=== PATIENT | female | born 1990 | race Caucasian/White ===

== ENCOUNTER 2021-12-01 22:11 | Emergency (ER) | payer BC, OTHER ==
[2021-12-01] MEDS ORDERED: Ondansetron PF 4 MG/2 ML Vial ONE (22:56)
[2021-12-01 23:05] LABS: Bilirubin Neg (Negative); Blood, Urine Negative (Negative); Clarity Clear (Clear); Glucose, Urine (Dipstick) Normal (Negative); Ketone, Urine 150 mg/dL (Negative); Leukocyte 100 (Negative); Nitrite Negative (Negative); Protein, Urine (Dipstick) 30 mg/dl (Neg-Trace); Specific Gravity, Urine 1.025 (1.002-1.036)
[2021-12-01 23:11] LABS: #Monocytes 0.4 10x3/uL (0.0-1.1); #Neutrophils 16.4 10x3/uL (1.5-8.4); %Basophils 0.1 % (0.0-2.0); %Eosinophils 0.2 % (0.0-6.0); %Lymphocytes 3.7 % (18.0-47.0); %Neutrophils 93.6 % (40.0-75.0); ALT (SGPT) 35 U/L (8-55); AST (SGOT) 25 U/L (5-34); Albumin 3.8 g/dL (3.5-5.0); Alkaline Phosphatase 69 U/L (40-110); Anion Gap 17 mmol/L (10-20); BUN (Urea Nitrogen) 12 mg/dL (7.0-18.7); Bilirubin, Total 0.5 mg/dL (0.2-1.2); Calc. Creatinine Clearance 0 mL/min (70-130); Calcium 9.1 mg/dL (7.8-10.44); Carbon Dioxide 19 mmol/L (22-29); Chloride 104 mmol/L (98-107); Globulin 3.8 g/dL (2.4-3.5); Glucose 117 mg/dL (70-105); Hemoglobin 13.7 g/dL (12.0-15.5); Magnesium 1.7 mg/dL (1.6-2.6); Mean Corpuscular HGB CONC 34.5 g/dL (32.0-36.0); Mean Corpuscular Hemoglobin 31.6 pg (27.0-33.0); Mean Corpuscular Volume 91.7 fl (81.6-98.3); Mean Platelet Volume 9.1 fl (7.4-10.4); Platelet Count 393 10x3/uL (150-450); Potassium 3.9 mmol/L (3.5-5.1); Protein, Total 7.6 g/dL (6.0-8.3); RBC Distribution Width 13.3 % (11.5-14.5); Red Blood Cell (RBC) Count 4.33 10x6/uL (3.90-5.03); Sodium 136 mmol/L (136-145); White Blood Cell (WBC) Count 17.5 10x3/uL (3.5-10.5)
[2021-12-01 23:15] LABS: Bacteria/HPF 2+ HPF (None Seen); RBC/HPF 0-3 HPF (0-3); Squamous Epithelial 21-50 HPF (0-3)
== END 2021-12-02 01:01 | disposition home or self-care (01) ==
LOC: CSHERS 22:11
DX: O23.41 Unspecified infection of urinary tract in pregnancy, first trimester (principal); O21.9 Vomiting of pregnancy, unspecified; Z3A.24 24 weeks gestation of pregnancy
CPT/HCPCS: 80053; 81003; 81015; 83735; 85025; 96374; J2405

== ENCOUNTER 2022-03-04 17:02 | Inpatient (IN) | payer BC ==
[~2022-03-04 17:02] MED LIST: Bupivacaine 0.25% HCL 30 ML VIAL ONE
[2022-03-04] MEDS ORDERED: Ondansetron PF 4 MG/2 ML Vial IVP PRN (17:20)
[2022-03-04] MEDS ORDERED: Misoprostol 200 MCG TAB PR PRN (17:20)
[2022-03-04] MEDS ORDERED: Diphenoxylate HCl/Atropine Tablet PO PRN ×2 (17:20)
[2022-03-04] MEDS ORDERED: hydrALAZINE 20 MG/ML VIAL SLOW IVP PRN (17:20)
[2022-03-04] MEDS ORDERED: Ibuprofen 800 MG TAB PO PRN (17:20)
[2022-03-04] MEDS ORDERED: HYDROcodone/Acetaminophen 5/325 mg Tablet PO PRN ×2 (17:20)
[2022-03-04] MEDS ORDERED: Promethazine HCl 25 MG/ML VIAL IM PRN (17:20)
[2022-03-04] MEDS ORDERED: Zolpidem Tartrate 5 MG TAB PO PRN (17:20)
[2022-03-04] MEDS ORDERED: Butorphanol Tartrate 1 MG/ML VIAL SLOW IVP PRN (17:20)
[2022-03-04] MEDS ORDERED: Docusate 100 MG CAP PO PRN (17:20)
[2022-03-04] MEDS ORDERED: Acetaminophen 500 MG TAB PO PRN (17:20)
[2022-03-04] MEDS ORDERED: Lidocaine 1% (PF) 30 ML VIAL SC PRN (17:20)
[2022-03-04] MEDS ORDERED: Calcium Gluc 4.6 MEQ/10 ML (100 MG/ML) SLOW IVP PRN (17:25)
[2022-03-04] MEDS ORDERED: Lorazepam 2 MG/ML VIAL SLOW IVP PRN (17:25)
[2022-03-04] MEDS ORDERED: Labetalol HCl 100 MG/20 ML VIAL SLOW IVP PRN (17:25)
[2022-03-04] MEDS ORDERED: Misoprostol 100 MCG TAB VAG SCH (17:30)
[2022-03-04] MEDS ORDERED: NS w/ Oxytocin 30 units 500 ML IV SCH ×2 (17:30)
[2022-03-04] MEDS ORDERED: Penicillin G Potassium 5 MILL.UNITS in Sodium Chloride 0.9% 100 ML IVPB SCH (17:30)
[2022-03-04] MEDS ORDERED: Magnesium Sulfate 20 gm/500 ml 20 GM/500 ML BAG IVPB SCH (17:30)
[2022-03-04 17:56] LABS: #Basophils 0.1 10x3/uL (0.0-0.2); #Eosinphils 0.3 10x3/uL (0.0-0.5); #Neutrophils 5.9 10x3/uL (1.5-8.4); %Basophils 0.5 % (0.0-2.0); %Eosinophils 3.1 % (0.0-6.0); %Lymphocytes 22.2 % (18.0-47.0); %Monocytes 10.6 % (0.0-10.0); %Neutrophils 63.3 % (40.0-75.0); Hemoglobin 11.8 g/dL (12.0-15.5); Mean Corpuscular Hemoglobin 30.6 pg (27.0-33.0); Mean Platelet Volume 9.7 fl (7.4-10.4); Platelet Count 327 10x3/uL (150-450); RBC Distribution Width 13.5 % (11.5-14.5); Red Blood Cell (RBC) Count 3.85 10x6/uL (3.90-5.03); White Blood Cell (WBC) Count 9.3 10x3/uL (3.5-10.5)
[2022-03-04 18:07] LABS: Uric Acid 4.2 mg/dL (2.6-6.0)
[2022-03-04 18:28] LABS: HIV (1/2) Antibody/Antigen Non-Reactive (NonReactive); HIV 1/2 INDEX 0.14 S/CO (<1.00); Hep B Surf Ag Non-Reactive S/CO (NonReactive)
[2022-03-04 18:29] LABS: Syphilis Antibody Nonreactive (Nonreactive); Syphilis Antibody Index 0.05 S/CO (<1.00 Non-Reactive)
[2022-03-04 18:31] LABS: HBSAg Index 0.22 S/CO (0-0.99)
[2022-03-04 19:54] VITALS: BMI 45.1
[2022-03-04] MEDS: Lactated Ringer's 1,000 ML IV SCH (20:15)
[2022-03-04] MEDS: Labetalol HCl 200 MG TAB PO SCH (20:55)
[2022-03-04 22:24] LABS: SARS-CoV-2 NAA Rapid Test Not Detected (NotDetected)
[2022-03-05] MEDS: Penicillin G 2.5 MILL.units 2.5 MILL.UNITS in Premix Bag 1 BAG IVPB SCH ×5 (01:02→16:55)
[2022-03-05] MEDS ORDERED: Fentanyl 2 mcg/Bup 0.1% Cadd 100 ML ONE (03:32)
[2022-03-05] MEDS ORDERED: ePHEDrine Sulfate 50 MG/10 ML VIAL SLOW IVP PRN (04:17)
[2022-03-05] MEDS ORDERED: Naloxone HCl 0.4 mg/ml Vial IVP PRN ×2 (04:17)
[2022-03-05] MEDS ORDERED: Moisturizing Cream (Eucerin) 113 GM JAR TOP PRN (04:17)
[2022-03-05] MEDS ORDERED: Ondansetron PF 4 MG/2 ML Vial IVP PRN ×2 (04:17→13:17)
[2022-03-05] MEDS ORDERED: Promethazine HCl 25 MG/ML VIAL IM PRN (04:17)
[2022-03-05] MEDS ORDERED: Acetaminophen 325 MG TAB PO PRN (04:17)
[2022-03-05] MEDS ORDERED: Lactated Ringer's 500 ML IV PRN (04:17)
[2022-03-05] MEDS ORDERED: diphenhydrAMINE 50 MG/ML VIAL IVP PRN (04:17)
[2022-03-05] MEDS ORDERED: Fentanyl 2 mcg/Bupivacaine 0.1% Cassette 100 ML EPIDURAL SCH (04:30)
[2022-03-05] MEDS ORDERED: Communication Order-Pharmacy FS SCH (04:30)
[2022-03-05] MEDS: Lactated Ringer's 1,000 ML IV SCH ×2 (05:06→16:56)
[2022-03-05] MEDS: Labetalol HCl 200 MG TAB PO SCH ×2 (08:35→16:55)
[2022-03-05] MEDS ORDERED: Bisacodyl 10 MG SUPP PR PRN (13:17)
[2022-03-05] MEDS ORDERED: Milk Of Magnesia 30 ML UDCUP PO PRN (13:17)
[2022-03-05] MEDS ORDERED: Preparation H Ointment 28 GM TUBE PR PRN (13:17)
[2022-03-05] MEDS ORDERED: hydrALAZINE 20 MG/ML VIAL SLOW IVP PRN (13:17)
[2022-03-05] MEDS ORDERED: Misoprostol 200 MCG TAB VAG PRN (13:17)
[2022-03-05] MEDS ORDERED: Zolpidem Tartrate 5 MG TAB PO PRN (13:17)
[2022-03-05] MEDS ORDERED: diphenhydrAMINE 25 MG CAP PO PRN (13:17)
[2022-03-05] MEDS ORDERED: HYDROcodone/Acetaminophen 5/325 mg Tablet PO PRN ×2 (13:17)
[2022-03-05] MEDS ORDERED: Benzocaine-Menthol 82.5 ML CAN TOP PRN (13:17)
[2022-03-05] MEDS ORDERED: Lanolin Ointment 7 GM TUBE TOP PRN (13:17)
[2022-03-05] MEDS ORDERED: NS w/ Oxytocin 30 units 500 ML IV SCH (13:30)
[2022-03-05] MEDS: Ibuprofen 800 MG TAB PO SCH ×2 (16:17→21:18)
[2022-03-05] MEDS: Ferrous Sulfate 325 MG TAB PO SCH (16:54)
[2022-03-05] MEDS: Docusate 100 MG CAP PO SCH (21:18)
[2022-03-05] MEDS: Labetalol HCl 100 MG TAB PO SCH (21:18)
[2022-03-06] MEDS: Ibuprofen 800 MG TAB PO SCH ×2 (05:48→13:43)
[2022-03-06] MEDS: Ferrous Sulfate 325 MG TAB PO SCH ×2 (07:49→14:35)
[2022-03-06] MEDS: Docusate 100 MG CAP PO SCH (08:03)
[2022-03-06] MEDS: Labetalol HCl 100 MG TAB PO SCH (08:03)
[2022-03-06] MEDS ORDERED: Prenatal Vitamin 1 TAB PO SCH (09:00)
[2022-03-06] MEDS ORDERED: Boostrix 0.5 ML (Tdap) VIAL IM ONE (13:17)
[2022-03-06 20:10] VITALS: BP 138/78; TEMP 97.9
== END 2022-03-06 19:29 | disposition home or self-care (01) | DRG 807 ==
LOC: CSHLD 17:02 → CSHPP 03-05 16:25
PROVIDERS: ADMIT Obstetrics & Gynecology; ATTEND Obstetrics & Gynecology
PROC: 10E0XZZ Delivery of Products of Conception, External Approach (ICD-10-PCS; 2022-03-04)
PROC: 3E0P7VZ Introduction of Hormone into Female Reproductive, Via Natural or Artificial Opening (ICD-10-PCS; 2022-03-04)
PROC: 3E033VJ Introduction of Other Hormone into Peripheral Vein, Percutaneous Approach (ICD-10-PCS; 2022-03-04)
PROC: 3E0234Z Introduction of Serum, Toxoid and Vaccine into Muscle, Percutaneous Approach (ICD-10-PCS; principal; 2022-03-06)
DX: O14.94 Unspecified pre-eclampsia, complicating childbirth (principal); Z37.0 Single live birth; O99.824 Streptococcus B carrier state complicating childbirth; O26.893 Other specified pregnancy related conditions, third trimester; O76 Abnormality in fetal heart rate and rhythm complicating labor and delivery; Z20.822 Contact with and (suspected) exposure to COVID-19; Z3A.37 37 weeks gestation of pregnancy; Z67.41 Type O blood, Rh negative; Z86.16 Personal history of COVID-19; Z79.82 Long term (current) use of aspirin; Z79.899 Other long term (current) drug therapy
CPT/HCPCS: 36415; 51702; 83615; 84450; 84460; 84550; 85025; 85461; 86780; 86850; 86900; 86901; 87340; 87389; 90384; 96372; J1200; J2405; J2540; J2590; J3490; J7120; S0020; U0002